=== PATIENT | female | born 1985 | race Caucasian/White ===

== ENCOUNTER 2019-10-05 06:23 | Emergency (ER) | payer SELFPAY ==
[~2019-10-05] VITALS: Ht 157.5 cm; Wt 72.7 kg
[2019-10-05 06:31] VITALS: Ht 157.5 cm; Wt 72.7 kg
[2019-10-05 06:48] LABS: BASOPHILS 0.2 % (0-2); EOSINOPHILS 1.8 % (0-7); HEMATOCRIT 40.4 % (36.0-48.0); HEMOGLOBIN 13.3 g/dL (12-16); MCH 30.2 pg (26.0-34.0); MCHC 32.9 g/dL (31.0-37.0); MCV 91.8 fL (80.0-100.0); MEAN PLATELET VOLUME 8.4 fL (7.4-10.4); MONOCYTES 9.3 % (2-11); NEUTROPHILS 47.7 % (40-80); PLATELET COUNT 211 10x3/uL (130-400); RDW 13.1 % (11.5-14.5); WBC 5.7 10x3/uL (4.8-10.8)
[2019-10-05 06:49] LABS: BILIRUBIN NEGATIVE (NEGATIVE); GLUCOSE NEGATIVE (NEGATIVE); KETONE NEGATIVE (NEGATIVE); NITRITE NEGATIVE (NEGATIVE); UROBILINOGEN NORMAL (NORMAL)
[2019-10-05 06:54] LABS: HCG URINE NEGATIVE (NEGATIVE)
[2019-10-05 06:59] LABS: CALC OSMOLALITY 277 mosm/kg (275-300); CALCIUM 8.4 mg/dL (8.5-10.1); CARBON DIOXIDE 29.8 mmol/L (21.0-32.0); CHLORIDE - SERUM 103 mmol/L (98-107); CREATININE - SERUM 0.7 mg/dL (0.6-1.3); GLUCOSE 93 mg/dL (74-106); SODIUM 138 mmol/L (136-145); UREA NITROGEN 19 mg/dL (7-18); eGFR NON AFRICAN AMERICAN > 90 mL/min (90-120)
[2019-10-05 07:07] LABS: ALBUMIN 3.5 g/dL (3.4-5.0); ALKALINE PHOSPHATASE 53 U/L (30-120); ALT (SGPT) 62 U/L (10-68); AMYLASE - SERUM 56 U/L (25-115); BILIRUBIN - TOTAL 0.24 mg/dL (0.2-1.3); LIPASE 109 U/L (73-393); PROTEIN - SERUM 6.9 g/dL (6.4-8.2)
[2019-10-05 07:08] LABS: TROPONIN-I < 0.017 ng/mL (0.000-0.060)
[2019-10-05] MEDS ORDERED: PHAZYME 125 MG125 MG PO (08:18)
[2019-10-05 08:49] VITALS: BP 98/49
== END 2019-10-05 08:49 | disposition home or self-care (01) ==
LOC: D.ER 06:23
PROVIDERS: Family Medicine
DX: R10.9 Unspecified abdominal pain (principal)

== ENCOUNTER 2020-03-14 17:30 | Outpatient (CLI) | payer OTHER ==
[2019-10-05 06:31] VITALS: BMI 29.3
[~2020-03-14 17:30] MED LIST: PHAZYME 125 MG125 MG PO
== END 2020-03-14 23:59 | disposition home or self-care (01) ==
LOC: D.MAMMO 17:30
PROVIDERS: ATTEND Family Medicine
DX: N64.52 Nipple discharge (principal)

== ENCOUNTER 2020-03-23 12:20 | Emergency (ER) | payer OTHER ==
[~2020-03-23] VITALS: Ht 157.5 cm; Wt 72.7 kg
[2020-03-23 12:29] VITALS: Ht 157.5 cm; Wt 72.7 kg
[2020-03-23 12:53] LABS: BASOPHILS 0.3 % (0-2); EOSINOPHILS 1.4 % (0-7); HEMATOCRIT 38.2 % (36.0-48.0); HEMOGLOBIN 13.1 g/dL (12-16); IMMATURE GRANULOCYTES 0.3 % (0-5); LYMPHOCYTES 37.6 % (15-50); MCH 30.6 pg (26.0-34.0); MCHC 34.3 g/dL (31.0-37.0); MCV 89.3 fL (80.0-100.0); MEAN PLATELET VOLUME 8.1 fL (7.4-10.4); MONOCYTES 12.3 % (2-11); NEUTROPHILS 48.1 % (40-80); PLATELET COUNT 298 10x3/uL (130-400); RBC 4.28 10x6/uL (4.00-5.40); RDW 13.3 % (11.5-14.5)
[2020-03-23 13:01] LABS: CALC OSMOLALITY 275 mosm/kg (275-300); CALCIUM 8.7 mg/dL (8.5-10.1); CARBON DIOXIDE 27.9 mmol/L (21.0-32.0); CHLORIDE - SERUM 105 mmol/L (98-107); CREATININE - SERUM 0.7 mg/dL (0.6-1.3); GLUCOSE 106 mg/dL (74-106); POTASSIUM - SERUM 3.5 mmol/L (3.5-5.1); SODIUM 138 mmol/L (136-145); UREA NITROGEN 12 mg/dL (7-18); eGFR NON AFRICAN AMERICAN > 90 mL/min (90-120)
[2020-03-23 13:08] LABS: ALBUMIN 4.1 g/dL (3.4-5.0); ALKALINE PHOSPHATASE 72 U/L (30-120); ALT (SGPT) 166 U/L (10-68); BILIRUBIN - TOTAL 0.43 mg/dL (0.2-1.3); PROTEIN - SERUM 7.5 g/dL (6.4-8.2)
[2020-03-23 13:33] LABS: BILIRUBIN NEGATIVE (NEGATIVE); KETONE NEGATIVE (NEGATIVE); NITRITE NEGATIVE (NEGATIVE); UROBILINOGEN NORMAL mg/dL (< 2)
[2020-03-23 14:12] LABS: MONO NEGATIVE (NEGATIVE)
[2020-03-23] MEDS ORDERED: MEDROL DOSE PACK4 MG PO ×2 (14:22→14:54)
[2020-03-23] MEDS ORDERED: FLUTICASONE PRO16 GM NASAL ×2 (14:22→14:54)
[2020-03-23] MEDS ORDERED: AUGMENTIN 875-11 TAB PO ×2 (14:22→14:54)
[2020-03-23 15:16] VITALS: BP 138/91
== END 2020-03-23 15:16 | disposition home or self-care (01) ==
LOC: D.ER 12:20
PROVIDERS: Family Medicine
DX: R52 Pain, unspecified (principal); J32.9 Chronic sinusitis, unspecified; R94.5 Abnormal results of liver function studies; R74.0 Nonspecific elevation of levels of transaminase and lactic acid dehydrogenase [LDH]; J06.9 Acute upper respiratory infection, unspecified

== ENCOUNTER 2020-04-17 15:05 | Emergency (ER) | payer OTHER ==
[~2020-04-17] VITALS: Ht 157.5 cm; Wt 68.2 kg
[~2020-04-17 15:05] MED LIST changes: +AUGMENTIN 875-11 TAB PO; +FLUTICASONE PRO16 GM NASAL; +MEDROL DOSE PACK4 MG PO
[2020-04-17 15:29] VITALS: BP 117/64; Ht 157.5 cm; Wt 68.2 kg
[2020-04-17] MEDS ORDERED: TRAZODONE HCL150 MG PO (15:31)
[2020-04-17] MEDS ORDERED: ZOLOFT100 MG PO (15:32)
[2020-04-17] MEDS ORDERED: RISPERDAL4 MG PO (15:32)
[2020-04-17] MEDS ORDERED: VOLTAREN75 MG PO (16:57)
[2020-04-17] MEDS ORDERED: KEFLEX500 MG PO (16:57)
== END 2020-04-17 18:45 | disposition home or self-care (01) ==
LOC: D.ER 15:05
DX: L03.031 Cellulitis of right toe (principal); S91.201A Unspecified open wound of right great toe with damage to nail, initial encounter; X58.XXXA Exposure to other specified factors, initial encounter

== ENCOUNTER 2020-10-19 17:38 | Observation (INO) | payer OTHER ==
[~2020-10-19] VITALS: Ht 157.5 cm; Wt 86.2 kg
[~2020-10-19 17:38] MED LIST changes: +KEFLEX500 MG PO; +RISPERDAL4 MG PO; +TRAZODONE HCL150 MG PO; +VOLTAREN75 MG PO; +ZOLOFT100 MG PO
[2020-10-19] MEDS ORDERED: PROCARDIA10 MG PO (17:50)
[2020-10-19] MEDS ORDERED: PROZAC10 MG PO (17:50)
--- NOTE | 2020-10-19 18:11 | NUR ---
PATIENT RESTLESS, UNABLE TO MAINTAIN EYE CONTACT OR REMAIN STILL IN BED. REPORTS HX OF DRUG USE.
[2020-10-19 18:14] LABS: BILIRUBIN NEGATIVE (NEGATIVE); KETONE NEGATIVE (NEGATIVE); NITRITE NEGATIVE (NEGATIVE); UROBILINOGEN NORMAL mg/dL (< 2)
[2020-10-19 18:15] LABS: HCG URINE NEGATIVE (NEGATIVE)
[2020-10-19 18:16] LABS: BASOPHILS 0.1 % (0-2); EOSINOPHILS 0.6 % (0-7); HEMATOCRIT 40.8 % (36.0-48.0); HEMOGLOBIN 14.2 g/dL (12-16); IMMATURE GRANULOCYTES 0.4 % (0-5); LYMPHOCYTES 19.8 % (15-50); MCH 30.5 pg (26.0-34.0); MCHC 34.8 g/dL (31.0-37.0); MCV 87.7 fL (80.0-100.0); MEAN PLATELET VOLUME 8.4 fL (7.4-10.4); MONOCYTES 9.9 % (2-11); NEUTROPHIL ABS# 9.44 10x3/uL (1.56-6.13); NEUTROPHILS 69.2 % (40-80); PLATELET COUNT 289 10x3/uL (130-400); RBC 4.65 10x6/uL (4.00-5.40); RDW 13.1 % (11.5-14.5); WBC 13.6 10x3/uL (4.8-10.8)
[2020-10-19 18:25] LABS: CALC OSMOLALITY 278 mosm/kg (275-300); CALCIUM 9.2 mg/dL (8.5-10.1); CARBON DIOXIDE 25.6 mmol/L (21.0-32.0); CHLORIDE - SERUM 103 mmol/L (98-107); CREATININE - SERUM 0.8 mg/dL (0.6-1.3); GLUCOSE 102 mg/dL (74-106); POTASSIUM - SERUM 3.7 mmol/L (3.5-5.1); SODIUM 139 mmol/L (136-145); UREA NITROGEN 16 mg/dL (7-18); eGFR NON AFRICAN AMERICAN 86 mL/min (90-120)
[2020-10-19 18:33] LABS: ALBUMIN 3.9 g/dL (3.4-5.0); ALKALINE PHOSPHATASE 62 U/L (30-120); ALT (SGPT) 124 U/L (10-68); AMYLASE - SERUM 32 U/L (25-115); BILIRUBIN - TOTAL 0.43 mg/dL (0.2-1.3); LIPASE 68 U/L (73-393); PROTEIN - SERUM 7.6 g/dL (6.4-8.2)
[2020-10-19 18:38] LABS: TROPONIN-I < 0.017 ng/mL (0.000-0.060)
--- NOTE | 2020-10-19 18:38 | NUR ---
RECTAL EXAM PERFORMED, ELAYNE RED BLOOD AND FECAL MATTER NOTED. SHERITA GEORGES AND DR SANCHEZ NOTIFIED.
[2020-10-19 18:47] LABS: APTT 29.8 SECONDS (22.8-39.4); INR 1.14 (0.85-1.17); PROTIME 13.6 SECONDS (11.6-15.0)
[2020-10-19 19:05] LABS: UDS - AMPHET POSITIVE QUAL (NEGATIVE); UDS - BARB NEGATIVE QUAL (NEGATIVE); UDS - BENZO NEGATIVE QUAL (NEGATIVE); UDS - COCAINE NEGATIVE QUAL (NEGATIVE); UDS - OPIATE NEGATIVE QUAL (NEGATIVE); UDS - PCP NEGATIVE QUAL (NEGATIVE); UDS - THC POSITIVE QUAL (NEGATIVE)
[2020-10-19 19:17] VITALS: BP 132/81
[2020-10-19 20:17] VITALS: BP 133/86
[2020-10-19 21:17] VITALS: BP 99/62
[2020-10-19 23:53] VITALS: Ht 157.5 cm; Wt 86.2 kg
[2020-10-20 00:19] VITALS: BP 99/69
[2020-10-20 00:47] LABS: HEMATOCRIT 37.2 % (36.0-48.0); HEMOGLOBIN 12.9 g/dL (12-16)
[2020-10-20 04:05] VITALS: BP 112/73
[2020-10-20 04:56] LABS: BASOPHILS 0.1 % (0-2); EOSINOPHILS 1.9 % (0-7); HEMATOCRIT 39.1 % (36.0-48.0); IMMATURE GRANULOCYTES 0.2 % (0-5); LYMPHOCYTE ABS# 2.36 10x3/uL (1.18-3.74); LYMPHOCYTES 26.9 % (15-50); MCH 29.5 pg (26.0-34.0); MCHC 33.2 g/dL (31.0-37.0); MCV 88.7 fL (80.0-100.0); MEAN PLATELET VOLUME 8.7 fL (7.4-10.4); MONOCYTES 12.3 % (2-11); NEUTROPHIL ABS# 5.13 10x3/uL (1.56-6.13); NEUTROPHILS 58.6 % (40-80); PLATELET COUNT 257 10x3/uL (130-400); RBC 4.41 10x6/uL (4.00-5.40); RDW 13.3 % (11.5-14.5)
[2020-10-20 04:59] LABS: WBC 8.8 10x3/uL (4.8-10.8)
[2020-10-20 05:22] LABS: ALBUMIN 3.2 g/dL (3.4-5.0); ALKALINE PHOSPHATASE 49 U/L (30-120); ALT (SGPT) 103 U/L (10-68); BILIRUBIN - TOTAL 0.39 mg/dL (0.2-1.3); CALC OSMOLALITY 275 mosm/kg (275-300); CALCIUM 8.1 mg/dL (8.5-10.1); CARBON DIOXIDE 23.9 mmol/L (21.0-32.0); CHLORIDE - SERUM 106 mmol/L (98-107); CREATININE - SERUM 0.7 mg/dL (0.6-1.3); GLUCOSE 105 mg/dL (74-106); MAGNESIUM - SERUM 1.9 mg/dL (1.8-2.4); PHOSPHOROUS 3.8 mg/dL (2.5-4.9); POTASSIUM - SERUM 3.5 mmol/L (3.5-5.1); PROTEIN - SERUM 6.5 g/dL (6.4-8.2); SODIUM 138 mmol/L (136-145); UREA NITROGEN 13 mg/dL (7-18); eGFR NON AFRICAN AMERICAN > 90 mL/min (90-120)
[2020-10-20 09:49] VITALS: BP 116/78
[2020-10-20] MEDS ORDERED: NICODERM CQ1 EAC3 TRANSDERM (11:04)
[2020-10-20] MEDS ORDERED: VISTARIL25 MG PO (11:04)
[2020-10-20] MEDS ORDERED: FLORAJEN3 CAPS460 MG PO (11:05)
[2020-10-20] MEDS ORDERED: BENZTROPINE MESY1 MG PO (11:05)
[2020-10-20] MEDS ORDERED: PROTONIX40 MG PO (11:05)
[2020-10-20] MEDS ORDERED: FLAGYL500 MG PO (11:06)
[2020-10-20] MEDS ORDERED: LEVOFLOXACIN500 MG PO (11:06)
--- NOTE | 2020-10-20 11:45 | MORECARE ---
CASE MANAGEMENT DISCHARGE SUMMARY PATIENT: RIO LA UNIT: [id number] ADM DATE: 10/19/20 AGE: 35 : 85 SEX: F ROOM/BED: D.6683 AUTHOR: WILD MARKHAM PHYSICIAN: REFERRING PHYSICIAN: ALLYSON LEONARDO MD DATE OF SERVICE: 10/20/20 Case Management Discharge Planning Summary COMMENTS ENTERED DATE: 10/20/20 11:37 CT COMMENT TYPE: Discharge Planning REVIEWER: Tashi Emerson CM met with patient to complete DC plan and to evaluate needs. Patient lives independently with her friend, Ramana Paulson, . Patient stated that their home is safe and has electricity and running water. Patient stated that the home has 2 steps to enter and they are able to manage the steps without difficulty. Patient stated that she has no problems paying for medications and she fills her medications at [facility]. Patient stated that her primary care physician is Dr. Blake. At discharge, the patient plans to return home and feels this is a safe discharge. CM discussed availability of home health, rehab services, and medical equipment. Patient declined HHS, SNF, IPR, and DME. Patient voiced no other needs at this time and is satisfied with DC plan. Transportation provider at discharge will be with Ramana. CM will continue to follow and will assist as needed with dc plans/needs. [facility] REVIEW SUMMARY ANTICIPATED D/C DATE: 10/20/2020 EXPECTED LOS : 1 CASE STATUS: DCP Initiated INITIAL REVIEW: 10/19/2020 INITIAL REVIEWER: Tashi Emerson FINAL DISCHARGE DISPOSITION: : FINAL REVIEWER: FINAL REVIEW DATE: IAP Focus Questions & Answers IAP Evaluation QUESTION: ANSWER Patient gives permission to discuss discharge plans with: (name, relationship and number) : friendRamana, Patient's ability to cope with chronic illness : d. No chronic illness Patient's current cognitive status: : *Oriented to person, place, situation, time and present Family / Caregiver's ability to cope with chronic illness: : a. Adequate (ability to meet patient's medical needs, ensures patient attends medical appts.) Patient and/or caregiver agree upon recommended discharge plan? : Yes Physical Status: : Independent with ADL's Family / Caregiver's ability to cope with chronic illness: : a. Adequate (ability to meet patient's medical needs, ensures patient attends medical appts.) Functional screen assessment: : Basic needs can adequately be met by self Does the patient have the ability to pay for or attain post discharge needs / services? : Yes Living Arrangements: : Home with Spouse/Significant Other Is there a likelihood that the patient will require additional services to return to the preadmission environment? : No Equipment needed for post hospitalization: : None Baseline cognitive status: : *Oriented to person, place, situation, time and present Patient with capacity for self-care or can be cared for in same environment as prior to hospitalization? : Yes Physical environment modification needed / anticipated for discharge: : No Medication Management: : Patient states can afford medications Medication Management: : Patient states can read and understand medication labels Does Patient have transportation to get home and to follow-up medical appointments when discharged from the hospital? : Yes Would patient like to participate in any Care Coordination programs (if applicable): : Not applicable Does the patient have electricity at home? : Yes Does the patient have running water in their house? : Yes Equipment in use: : None Mental health screen: : No mental health history DCP Re-evaluation QUESTION: ANSWER Would patient like to participate in any Care Coordination programs (if applicable): : Not applicable PATIENT: RIO LA ENCOUNTER: [id number] MEDICAL RECORD#: [id number] ADMISSION DATE: 10/19/2020 DISCHARGE DATE: ATTENDING MD: ALLYSON CHAIDEZ : AGE: 35 MARITAL STATUS: S DC PLAN ID: [id number] FACILITY: [facility] PRINTED ON: 10/20/20 11:45 CT All edits/amendments must be made on the electronic document DICTATION DATE: 10/20/20 1145 BENCH HAND: REGINALDO 10/20/20 1145 RPT#: [id number] DC DATE: STATUS: ADM IN [facility] [address] [place] [address] END OF REPORT
[2020-10-20 12:11] LABS: HEMATOCRIT 38.3 % (36.0-48.0); HEMOGLOBIN 13.1 g/dL (12-16)
[2020-10-20 13:11] VITALS: BP 99/64
--- NOTE | 2020-10-20 13:31 | NUR ---
DISCHARGE PAPERS, SALINE LOCK REMOVED, TELEMETRY REMOVED. PATIENT AMBULATORY WITH TO CAR.
--- NOTE | 2020-10-20 13:35 | MORECARE ---
CASE MANAGEMENT DISCHARGE SUMMARY PATIENT: RIO LA UNIT: [id number] ADM DATE: 10/19/20 AGE: 35 : 85 SEX: F ROOM/BED: D.7174 AUTHOR: WILD MARKHAM PHYSICIAN: REFERRING PHYSICIAN: ALLYSON LEONARDO MD DATE OF SERVICE: 10/20/20 Case Management Discharge Planning Summary COMMENTS ENTERED DATE: 10/20/20 11:37 CT COMMENT TYPE: Discharge Planning REVIEWER: Tashi Emerson CM met with patient to complete DC plan and to evaluate needs. Patient lives independently with her friend, Ramana Paulson, . Patient stated that their home is safe and has electricity and running water. Patient stated that the home has 2 steps to enter and they are able to manage the steps without difficulty. Patient stated that she has no problems paying for medications and she fills her medications at [facility]. Patient stated that her primary care physician is Dr. Blake. At discharge, the patient plans to return home and feels this is a safe discharge. CM discussed availability of home health, rehab services, and medical equipment. Patient declined HHS, SNF, IPR, and DME. Patient voiced no other needs at this time and is satisfied with DC plan. Transportation provider at discharge will be with Ramana. CM will continue to follow and will assist as needed with dc plans/needs. [facility] REVIEW SUMMARY ANTICIPATED D/C DATE: 10/20/2020 EXPECTED LOS : 1 CASE STATUS: DCP Initiated INITIAL REVIEW: 10/19/2020 INITIAL REVIEWER: Tashi Emerson FINAL DISCHARGE DISPOSITION: : FINAL REVIEWER: FINAL REVIEW DATE: TNP Focus Questions & Answers TNP Evaluation QUESTION: ANSWER Patient gives permission to discuss discharge plans with: (name, relationship and number) : friendRamana, Patient's ability to cope with chronic illness : d. No chronic illness Patient's current cognitive status: : *Oriented to person, place, situation, time and present Family / Caregiver's ability to cope with chronic illness: : a. Adequate (ability to meet patient's medical needs, ensures patient attends medical appts.) Patient and/or caregiver agree upon recommended discharge plan? : Yes Physical Status: : Independent with ADL's Family / Caregiver's ability to cope with chronic illness: : a. Adequate (ability to meet patient's medical needs, ensures patient attends medical appts.) Functional screen assessment: : Basic needs can adequately be met by self Does the patient have the ability to pay for or attain post discharge needs / services? : Yes Living Arrangements: : Home with Spouse/Significant Other Is there a likelihood that the patient will require additional services to return to the preadmission environment? : No Equipment needed for post hospitalization: : None Baseline cognitive status: : *Oriented to person, place, situation, time and present Patient with capacity for self-care or can be cared for in same environment as prior to hospitalization? : Yes Physical environment modification needed / anticipated for discharge: : No Medication Management: : Patient states can afford medications Medication Management: : Patient states can read and understand medication labels Does Patient have transportation to get home and to follow-up medical appointments when discharged from the hospital? : Yes Would patient like to participate in any Care Coordination programs (if applicable): : Not applicable Does the patient have electricity at home? : Yes Does the patient have running water in their house? : Yes Equipment in use: : None Mental health screen: : No mental health history DCP Re-evaluation QUESTION: ANSWER Would patient like to participate in any Care Coordination programs (if applicable): : Not applicable PATIENT: RIO LA ENCOUNTER: [id number] MEDICAL RECORD#: [id number] ADMISSION DATE: 10/19/2020 DISCHARGE DATE: 10/20/2020 ATTENDING MD: ALLYSON CHAIDEZ : AGE: 35 MARITAL STATUS: S DC PLAN ID: [id number] FACILITY: [facility] PRINTED ON: 10/20/20 13:35 CT All edits/amendments must be made on the electronic document DICTATION DATE: 10/20/20 1335 ASSEMBLY STOCK SUPERVISOR: DM 10/20/20 1335 RPT#: [id number] DC DATE:10/20/20 STATUS: DIS IN [id number] [place] [address] END OF REPORT
--- NOTE | 2020-10-20 15:39 | MORECARE ---
CASE MANAGEMENT DISCHARGE SUMMARY PATIENT: ROI LA UNIT: [id number] ADM DATE: 10/19/20 AGE: 35 : 85 SEX: F ROOM/BED: D.0884 AUTHOR: WILD MARKHAM PHYSICIAN: REFERRING PHYSICIAN: ALLYSON LEONARDO MD DATE OF SERVICE: 10/20/20 Case Management Discharge Planning Summary COMMENTS ENTERED DATE: 10/20/20 11:37 CT COMMENT TYPE: Discharge Planning REVIEWER: Tashi Emerson CM met with patient to complete DC plan and to evaluate needs. Patient lives independently with her friend, Ramana Paulson, . Patient stated that their home is safe and has electricity and running water. Patient stated that the home has 2 steps to enter and they are able to manage the steps without difficulty. Patient stated that she has no problems paying for medications and she fills her medications at [facility]. Patient stated that her primary care physician is Dr. Blake. At discharge, the patient plans to return home and feels this is a safe discharge. CM discussed availability of home health, rehab services, and medical equipment. Patient declined HHS, SNF, IPR, and DME. Patient voiced no other needs at this time and is satisfied with DC plan. Transportation provider at discharge will be with Ramana. CM will continue to follow and will assist as needed with dc plans/needs. [facility] REVIEW SUMMARY ANTICIPATED D/C DATE: 10/20/2020 EXPECTED LOS : 1 CASE STATUS: DCP Initiated INITIAL REVIEW: 10/19/2020 INITIAL REVIEWER: Tashi Emerson FINAL DISCHARGE DISPOSITION: : FINAL REVIEWER: FINAL REVIEW DATE: KSP Focus Questions & Answers KSP Evaluation QUESTION: ANSWER Patient gives permission to discuss discharge plans with: (name, relationship and number) : friendRamana, Patient's ability to cope with chronic illness : d. No chronic illness Patient's current cognitive status: : *Oriented to person, place, situation, time and present Family / Caregiver's ability to cope with chronic illness: : a. Adequate (ability to meet patient's medical needs, ensures patient attends medical appts.) Patient and/or caregiver agree upon recommended discharge plan? : Yes Physical Status: : Independent with ADL's Family / Caregiver's ability to cope with chronic illness: : a. Adequate (ability to meet patient's medical needs, ensures patient attends medical appts.) Functional screen assessment: : Basic needs can adequately be met by self Does the patient have the ability to pay for or attain post discharge needs / services? : Yes Living Arrangements: : Home with Spouse/Significant Other Is there a likelihood that the patient will require additional services to return to the preadmission environment? : No Equipment needed for post hospitalization: : None Baseline cognitive status: : *Oriented to person, place, situation, time and present Patient with capacity for self-care or can be cared for in same environment as prior to hospitalization? : Yes Physical environment modification needed / anticipated for discharge: : No Medication Management: : Patient states can afford medications Medication Management: : Patient states can read and understand medication labels Does Patient have transportation to get home and to follow-up medical appointments when discharged from the hospital? : Yes Would patient like to participate in any Care Coordination programs (if applicable): : Not applicable Does the patient have electricity at home? : Yes Does the patient have running water in their house? : Yes Equipment in use: : None Mental health screen: : No mental health history DCP Re-evaluation QUESTION: ANSWER Would patient like to participate in any Care Coordination programs (if applicable): : Not applicable PATIENT: RIO LA ENCOUNTER: [id number] MEDICAL RECORD#: [id number] ADMISSION DATE: 10/19/2020 DISCHARGE DATE: 10/20/2020 ATTENDING MD: ALLYSON CHAIDEZ : AGE: 35 MARITAL STATUS: S DC PLAN ID: [id number] FACILITY: [facility] PRINTED ON: 10/20/20 15:39 CT All edits/amendments must be made on the electronic document DICTATION DATE: 10/20/20 153 HUB CUTTER: DM 10/20/20 153 RPT#: [id number] DC DATE:10/20/20 STATUS: DIS [address] [place] [id number] [place] [address] END OF REPORT
== END 2020-10-20 13:32 | disposition home or self-care (01) ==
LOC: D.ER 17:38 → OBSVTIME 20:23 → D.M2 20:23
PROVIDERS: Emergency Medicine; Family Medicine; ADMIT Family Medicine; ATTEND Family Medicine
DX: K52.9 Noninfective gastroenteritis and colitis, unspecified (principal); R11.2 Nausea with vomiting, unspecified; K62.5 Hemorrhage of anus and rectum; F17.200 Nicotine dependence, unspecified, uncomplicated; K75.9 Inflammatory liver disease, unspecified